=== PATIENT | male | born 1955 | race African-American/Black ===

== ENCOUNTER 2020-02-05 09:07 | Emergency (ER) | payer BC, OTHER ==
[2020-02-05 09:10] VITALS: BMI 42.8
[2020-02-05] MEDS ORDERED: DIPHTH,PERTUSS(ACELL),TET 0.5 ML DISP.SYRIN IM ONE (09:57)
[2020-02-05] MEDS ORDERED: ACETAMINOPHEN 325 MG TABLET (FP) PO ONE (09:58)
[2020-02-05] MEDS ORDERED: ACETAMINOPHEN 325 MG TABLET (FP) ONE (10:04)
--- NOTE | 2020-02-05 10:14 | PDOC ---
History of Present Illness - General Chief Complaint: Injury Stated Complaint: FALL Time Seen by Provider: 02/05/20 09:21 History Source: Patient Exam Limitations: No Limitations - History of Present Illness Initial Comments: 02/05/20 10:08 64-year-old male history of hypertension, sciatica, walking imbalance which he uses a cane for assistance, right shoulder tendinitis, [id number] presents complaining of mild frontal headache with nausea, right shoulder pain, right arm pain and left thumb pain status post mechanical fall at approximately 8:30 AM today. Patient reports he bent forward to pick something up on the floor when he lost his balance, struck the right side of his head against the wall and fell onto the right side of his body. Denies LOC, neck pain, dizziness, back pain, chest pain, shortness of breath, abdominal pain, vomiting, diarrhea or any other complaint. Unknown tetanus status. Patient does not take anticoagulants. Patient ambulated to his vehicle and drove home after the injury. Denies taking any pain medication today. ROS: as above PE: GENERAL: well-appearing, NAD, obese HEAD: NCAT EYES: Pupils equal, round and reactive to light, sclera anicteric, conjunctiva clear ENT: pharynx: no erythema, no exudate, uvula midline NECK: supple CHEST: nontender, no crepitus RESP: clear, no w/r/r CARDIO: rrr, no m/g/r ABD: +BS, soft, nontender, non distended BACK: no midline spinal ttp, no CVAT EXTREMITIES: Decreased range of motion to right shoulder given pain however no deformity noted, no bony tenderness to palpation, no ecchymosis, 5/5 strength and sensation, no right-sided snuffbox tenderness to palpation NEUROLOGICAL: Normal speech, normal gait SKIN: Approximately 4 cm round abrasion to right side of frontal scalp, no active bleeding or laceration noted, small abrasion to the volar aspect of right wrist, warm, Dry Is this a multiple visit Asthma Patient?: No Past History - Medical History Allergies/Adverse Reactions: Allergies Allergy/AdvReac Type Severity Reaction Status Date / Time oxycodone HCl Allergy Rash Verified 02/05/20 09:10 [From OxyContin] Home Medications: Ambulatory Orders Olmesartan Medoxomil [Benicar] 5 mg PO DAILY 05/16/12 Cyclobenzaprine HCl [Flexeril -] 10 mg PO TID #9 tablet 05/29/16 Hydrochlorothiazide [Hctz -] 0 mg PO DAILY 05/29/16 Ibuprofen [Motrin -] 800 mg PO Q6H #30 tablet 05/29/16 COPD: No GI Disorders: Yes (DIVERTICULITIS) HTN: Yes - Immunization History Immunization Up to Date: Yes - Psycho-Social/Smoking History Smoking Status: No Smoking History: Never smoked Have you smoked in the past 12 months: No Number of Cigarettes Smoked Daily: 0 Information on smoking cessation initiated: No - Substance Abuse Hx (Audit-C & DAST Scrn) How often the patient has a drink containing alcohol: Never Score: In Men: 4 or > Positive; In Women: 3 or > Positive: 0 Screen Result (Pos requires Nsg. Audit-10AR): Negative In the last yr the pt used illegal drug/Rx for NonMed reason: No Score: Yes response is considered Positive: 0 Screen Result (Positive result requires Nsg. DAST-10): Negative *Physical Exam - Vital Signs Last Vital Signs Temp Pulse Resp BP Pulse Ox 99.2 F 82 19 148/103 H 100 02/05/20 09:07 02/05/20 09:07 02/05/20 09:07 02/05/20 09:07 02/05/20 09:07 ED Treatment Course - RADIOLOGY Radiology Studies Ordered: Category Date Time Status HEAD CT WITHOUT CONTRAST [CT] Stat CT Scan 02/05/20 09:54 Ordered CHEST PA & LAT [RAD] Stat Radiology 02/05/20 09:57 Ordered FINGER(S) LEFT [RAD] Stat Radiology 02/05/20 09:56 Ordered HUMERUS-RIGHT [RAD] Stat Radiology 02/05/20 09:56 Ordered SHOULDER-RIGHT [RAD] Stat Radiology 02/05/20 09:56 Ordered WRIST- RIGHT [RAD] Stat Radiology 02/05/20 09:55 Ordered Medical Decision Making - Medical Decision Making 02/05/20 10:14 64-year-old male history of hypertension, sciatica, walking imbalance which he uses a cane for assistance, right shoulder tendinitis, [id number] presents complaining of mild frontal headache with nausea, right shoulder pain, right arm pain and left thumb pain status post mechanical fall at approximately 8:30 AM today. Patient reports he bent forward to pick something up on the floor when he lost his balance, struck the right side of his head against the wall and fell onto the right side of his body. Denies LOC, neck pain, dizziness, back pain, chest pain, shortness of breath, abdominal pain, vomiting, diarrhea or any other complaint. Unknown tetanus status. Patient does not take anticoagulants. Patient ambulated to his vehicle and drove home after the injury. Denies taking any pain medication today. Mechanical fall with head strike Head CT Chest x-ray Right shoulder, right humerus, right wrist x-ray Left thumb x-ray Acetaminophen 650 mg p.o. x1 dose Tetanus vaccine Reassess 02/05/20 12:05 X-rays and head CT reviewed, official reads unremarkable Copy of head CT provided to patient to follow-up with PMD Toradol 30 mg IM x1 given Right-sided forehead abrasion cleaned and bacitracin applied Patient ambulatory Stable for discharge 02/05/20 12:06 Discharge - Discharge Information Problems reviewed: Yes Clinical Impression/Diagnosis: Fall Qualifiers: Encounter type: initial encounter Qualified Code(s): W19.XXXA - Unspecified fall, initial encounter Condition: Stable Disposition: HOME - Admission No - Follow up/Referral Referrals: Damien Espinoza MD [Primary Care Provider] - - Patient Discharge Instructions Additional Instructions: Keep your wound clean and dry, apply bacitracin to area twice a day You may alternate between acetaminophen 975 mg and ibuprofen 600 mg every 6 hours as needed for pain Follow-up with your primary care doctor within 1 week If any concerning symptoms such as nausea, vomiting, headache, neck pain or any concerning symptoms return to ED - Post Discharge Activity
[2020-02-05] MEDS ORDERED: KETOROLAC TROMETHAMINE 30 MG/1 ML VIAL IM ONE (11:40)
[2020-02-05] MEDS ORDERED: KETOROLAC TROMETHAMINE 30 MG/1 ML VIAL ONE (12:00)
[2020-02-05] MEDS ORDERED: BACITRACIN 15 GM TUBE TOPICAL OINTMENT ONE (12:14)
[2020-02-05 12:18] VITALS: BP 144/88; PULSE 74; TEMP 98.2
== END 2020-02-05 13:06 | disposition home or self-care (01) ==
LOC: JER 09:07
PROC: 3E0234Z Introduction of Serum, Toxoid and Vaccine into Muscle, Percutaneous Approach (ICD-10-PCS; principal; 2020-02-05)
PROC: 3E033GC Introduction of Other Therapeutic Substance into Peripheral Vein, Percutaneous Approach (ICD-10-PCS; 2020-02-05)
DX: S00.81XA Abrasion of other part of head, initial encounter (principal)
CPT/HCPCS: 70450-TC; 71046-TC-FY; 73030-TC-RT-FY; 73060-TC-RT-FY; 73110-TC-RT-FY; 73140-TC-LT-FY; 90715; 99285-25

== ENCOUNTER 2021-07-07 13:56 | Emergency (ER) | payer BC, OTHER ==
[2021-07-07 14:07] VITALS: BP 142/92; PULSE 90; TEMP 98.1; BMI 46.5
== END 2021-07-07 16:37 ==
LOC: JER 13:56 → JERFT 13:56
DX: M25.551 Pain in right hip (principal); M25.571 Pain in right ankle and joints of right foot; W19.XXXA Unspecified fall, initial encounter
CPT/HCPCS: 73523-TC-FY; 73610-TC-RT-FY; 73630-TC-RT-FY; 99284-25

== ENCOUNTER 2023-01-03 01:02 | Emergency (ER) | payer OTHER, BC ==
[2023-01-03 01:12] VITALS: RESP 18; BMI 46.5
[2023-01-03] MEDS ORDERED: ACETAMINOPHEN 325 MG TABLET (FP) PO ONE (02:15)
[2023-01-03] MEDS ORDERED: LIDOCAINE 5% TOPICAL PATCH TP ONE (02:15)
[2023-01-03] MEDS ORDERED: ACETAMINOPHEN 325 MG TABLET (FP) ONE (02:19)
[2023-01-03] MEDS ORDERED: LIDOCAINE 5% TOPICAL PATCH ONE (02:19)
[2023-01-03 04:43] LABS: EPI CELLS 1 /uL (0-25.1); HYALINE CASTS 0 /uL (0-3.1); PH,URINE 5.5 (5.0-8.0); URINE APPEARANCE CLEAR; URINE BACTERIA 0 /uL (0-1359); URINE BILIRUBIN NEGATIVE (NEGATIVE); URINE COLOR YELLOW; URINE GLUCOSE (UA) NEGATIVE (NEGATIVE); URINE KETONE NEGATIVE (NEGATIVE); URINE LEUK ESTERASE NEGATIVE (NEGATIVE); URINE NITRITE NEGATIVE (NEGATIVE); URINE PROTEIN 1+ (NEGATIVE); URINE RBC 18 /uL (0-23.9); URINE UROBILINOGEN 0.2 mg/dL (0.2-1.0); URINE WBC 7 /uL (0-25.8)
[2023-01-03] MEDS ORDERED: traMADol HCL 50 MG TABLET PO ONE (05:06)
[2023-01-03] MEDS ORDERED: traMADol HCL 50 MG TABLET ONE (05:27)
[2023-01-03 06:23] VITALS: BP 139/71; PULSE 79; TEMP 97.9
== END 2023-01-03 06:25 | disposition home or self-care (01) ==
LOC: JER 01:02
DX: M54.50 Low back pain, unspecified (principal); M62.830 Muscle spasm of back; R31.9 Hematuria, unspecified
CPT/HCPCS: 74176-TC; 81003; 87086; 99284-25